=== PATIENT | female | born 1940 | race Two or more races ===

== ENCOUNTER → 2024-05-29 | Outpatient (CLI) | payer OTHER, SELFPAY | END | disposition home or self-care (01) | PROVIDERS: Referring Provider Family Medicine; Visit Provider Family Medicine | DX: D64.9 Anemia, unspecified (principal) | CPT/HCPCS: 82270 ==

== ENCOUNTER → 2024-10-08 | Outpatient (CLI) | payer OTHER, SELFPAY ==
--- NOTE | 2024-10-08 14:43 | XR_ITS ---
Examination: Breast ultrasound, unilateral, left complete Date and time of exam: October 08, 2024 1457 hours INDICATIONS: Mammogram March 17, 2024 17 mm focal asymmetry outer right breast CC view, focal asymmetry upper left breast MLO view, bilateral breast sonography April 16, 2024 left breast 2:00 nodule 6 mm Technique: Real-time guerrero scale ultrasonographic imaging performed left breast including all 4 quadrants as well as nipple retroareolar and axillary region. Findings: 3:00 oval mass circumscribed 5 x 5 mm IMPRESSION: BI-RADS Category 2: Benign findings
--- NOTE | 2024-10-08 15:09 | XR_ITS ---
Examination: Diagnostic digital mammography, bilateral Computer aided detection 3-D breast Tomosynthesis, bilateral Date and time of exam: October 08, 2024 1521 hours Compared to mammograms dating to July 30, 2017 INDICATIONS: Mammogram February 21, 2024 8 mm oval mass upper outer right breast 12 mm oval mass upper outer left breast Technique: Nonmagnified MLO, CC views of the breasts to been obtained, reconstructed from 3-D Tomosynthesis images. R2 computer aided detection program utilized for evaluation of suspicious masses and/or abnormal calcifications. 3-D Tomosynthesis images obtained. Findings: Scattered areas of fibroglandular density Oval mass is again appreciated, circumscribed, 19 mm upper outer right breast Focal asymmetry outer left breast is stable Impression: BI-RADS Category 0: Incomplete: Need additional imaging evaluation Recommend follow-up right breast sonography to further characterize 19 mm oval mass upper outer right breast on the current mammogram Assessment continued left mammogram follow-up is needed to document stability of focal asymmetry outer left breast.
== END | disposition home or self-care (01) ==
PROVIDERS: PCP Family Medicine; Referring Provider Family Medicine; Visit Provider Family Medicine
DX: N63.11 Unspecified lump in the right breast, upper outer quadrant (principal); N64.89 Other specified disorders of breast; N63.25 Unspecified lump in the left breast, overlapping quadrants
CPT/HCPCS: 76641; 77062; 77066; G0279

== ENCOUNTER → 2024-11-10 | Outpatient (CLI) | payer OTHER, SELFPAY ==
--- NOTE | 2024-11-10 08:51 | XR_ITS ---
Examination: Diagnostic digital mammography, unilateral, left Computer aided detection 3-D breast Tomosynthesis, unilateral Date and time of exam: November 10, 2024 0931 hours INDICATIONS: Mammogram October 08, 2024 19 mm oval mass circumscribed upper outer right breast, focal asymmetry outer left breast Technique: Nonmagnified MLO, CC views of the left breast have been obtained, reconstructed from 3-D Tomosynthesis images. R2 computer aided detection program utilized for evaluation of suspicious masses and/or abnormal calcifications. 3-D Tomosynthesis images obtained. Findings: Scattered areas of fibroglandular density 3:00 5 mm circumscribed nodule on left breast sonogram October 08, 2024 No current suspicious mass Impression: BI-RADS category 2: Benign findings Return to yearly follow-up mammography
--- NOTE | 2024-11-10 08:51 | XR_ITS ---
Examination: Breast ultrasound, unilateral, right complete Exam date and time: November 10, 2024 at 9:41 AM INDICATIONS: Mammogram October 08, 2024 19 mm oval mass upper outer right breast Technique: Real-time guerrero scale ultrasonographic imaging performed right breast including all 4 quadrants as well as nipple retroareolar and axillary region. Findings: No cystic or solid mass IMPRESSION: BI-RADS Category 1: Negative study
== END | disposition home or self-care (01) ==
LOC: CDIM 08:38
PROVIDERS: Referring Provider Family Medicine; Visit Provider Family Medicine
DX: R92.321 Mammographic fibroglandular density, right breast (principal)
CPT/HCPCS: 76641; 77061; 77065; G0279

== ENCOUNTER → 2024-12-22 | Outpatient (CLI) | payer OTHER, SELFPAY ==
[2024-12-22 12:24] LABS: Basophils % (Auto) 1 % (0-2.5); Eosinophils # (Auto) 0.2 Thou/mm3 (0.0-0.5); Eosinophils % (Auto) 5 % (0-10); Immature Granulocytes % (Auto) 0 % (0-0); Immature Granulocytes Auto 0.01 Thou/mm3 (0.00-0.00); Lymphocytes # (Auto) 0.8 Thou/mm3 (1.0-4.8); Lymphocytes % (Auto) 20 % (10-50); Mean Corpuscular HGB Conc 32.4 g/dl (31.0-37.0); Mean Corpuscular Hemoglobin 32.3 pg (25.0-35.0); Mean Corpuscular Volume 100 fL (80-100); Monocytes # (Auto) 0.3 Thou/mm3 (0.0-0.8); Monocytes % (Auto) 8 % (0-12); Neutrophils # (Auto) 2.7 Thou/mm3 (1.8-7.7); Neutrophils % (Auto) 67 % (37-80); Nucleated Red Blood Cell % 0 /100 WBC (0); Platelet Count 168 Thou/mm3 (140-440); RDW Standard Deviation 51.8 fL (36.4-46.3); Red Blood Count 3.71 Miln/mm3 (4.00-5.20)
[2024-12-22 12:41] LABS: Ferritin 328 ng/mL (7.3-270.7); Iron 83 mcg/dL (50-170); Percent Iron Saturation 30 % (20-55); Total Iron Binding Capacity 269 mcg/dL (250-425); Unsaturated Iron Binding 186 (225-295)
== END | disposition home or self-care (01) ==
LOC: COPL 11:17
PROVIDERS: PCP Family Medicine; Referring Provider Family Medicine; Visit Provider Family Medicine
DX: D64.9 Anemia, unspecified (principal)
CPT/HCPCS: 36415; 82728; 83540; 83550; 85025

== ENCOUNTER → 2025-02-08 | Outpatient (CLI) | payer OTHER, SELFPAY ==
--- NOTE | 2025-02-08 13:09 | XR_ITS ---
Examination: Lumbar spine 7 views TECHNIQUE: AP, lateral, coned lateral lower lumbar spine, standing lateral flexion, standing lateral extension, OSMAN, TUNISIAN, 7 views Exam date and time: February 08, 2025 1329 hours INDICATIONS: Patient fell last week with injury to the lower back, lower back pain. FINDINGS: Severe osteopenia Moderately severe compression fracture L2 which may be acute Diffuse [id number] lumbar disc narrowing Decreased range of motion between flexion and extension IMPRESSION: Recommend CT scan lumbar spine without contrast follow-up to confirm acute compression fracture L2 vertebral body
== END | disposition home or self-care (01) ==
LOC: CDIM 12:59
PROVIDERS: PCP Family Medicine; Referring Provider Family Medicine; Visit Provider Family Medicine
DX: M54.50 Low back pain, unspecified (principal)
CPT/HCPCS: 72114

== ENCOUNTER → 2025-02-22 | Outpatient (CLI) | payer OTHER, SELFPAY ==
[2025-02-22 10:23] LABS: B-Type Natriuretic Peptide 298 pg/mL (0-100)
[2025-02-22 11:03] LABS: Glucose Estimated Average 114 mg/dL (80-131); Hemoglobin A1C 5.6 % Hgb (4.8-6.0)
[2025-02-22 11:26] LABS: Anion Gap 5 (7-16); BUN/Creatinine Ratio 21 Ratio (12-20); Blood Urea Nitrogen 30 mg/dL (9-23); Calcium 8.8 mg/dL (8.3-10.6); Carbon Dioxide 30.8 mMol/L (20.0-31.0); Cardiac Risk Estimate 3.7 RATIO (3.7-5.6); Chloride 107 mMol/L (98-107); Cholesterol 194 mg/dL (132-200); Creatinine (Component) 1.4 mg/dL (0.6-1.3); Free T4 (Free Thyroxine) 1.04 ng/dL (0.89-1.76); Glucose 97 mg/dL (74-106); HDL Cholesterol 53 mg/dL (40-60); LDL Cholesterol,Calculated 112 mg/dL (0-130); Osmolality,Calculated 291 (275-295); Potassium 4.8 mMol/L (3.4-5.1); Sodium 143 mMol/L (136-145); Thyroid Stimulating Hormone 1.73 uIU/mL (0.55-4.78); Triglycerides 146 mg/dL (30-150); eGFR 37 See Note
== END | disposition home or self-care (01) ==
LOC: COPL 09:17
PROVIDERS: PCP Family Medicine; Referring Provider Internal Medicine Cardiovascular Disease; Visit Provider Internal Medicine Cardiovascular Disease
DX: I10 Essential (primary) hypertension (principal)
CPT/HCPCS: 36415; 80048; 80061; 83036; 83735; 83880; 84439; 84443

== ENCOUNTER 2025-04-13 08:10 | Emergency (ER) | payer OTHER, SELFPAY ==
[2025-04-13 08:11] VITALS: BMI 28.3
[2025-04-13 08:20] VITALS: BP 164/69; PULSE 60; RESP 19; TEMP 36.6; O2SAT 97
--- NOTE | 2025-04-13 08:24 | XR_ITS ---
Examination: Duplex scan of the lower extremity, unilateral right Date and time of exam: April 13, 2025 0856 hours INDICATIONS: Right neck swelling and pain beginning 4 weeks ago Technique: Duplex scan of the extremity veins using B-mode/grayscale imaging and Doppler spectral analysis and color flow Attention is directed to internal echogenicity, compression and augmentation involving these veins, color flow assessment, spectral analysis Findings: Major deep venous structures in the extremity demonstrate normal course and caliber. There is no evidence of deep vein thrombosis. Normal color flow and spectral analysis Impression: Negative for DVT..
--- NOTE | 2025-04-13 09:12 | XR_ITS ---
Examination: Tibia-Fibula, right , 2 views Technique: Tibia-fibula AP lateral 2 views Date and time of exam: April 13, 2025 0918 hours INDICATIONS: Lower leg swelling and pain beginning 4 months ago FINDINGS: Partial visualization total knee arthroplasties with satisfactory alignment Moderate osteopenia. No fracture. No cortical bone destruction IMPRESSION: No fracture. No cortical bone destruction
[2025-04-13 09:28] LABS: Basophils # (Auto) 0.0 Thou/mm3 (0.0-0.2); Basophils % (Auto) 1 % (0-2.5); Eosinophils # (Auto) 0.2 Thou/mm3 (0.0-0.5); Eosinophils % (Auto) 5 % (0-10); Hematocrit 32.5 % (36.0-46.0); Hemoglobin 10.3 g/dL (12.0-16.0); Immature Granulocytes Auto 0.01 Thou/mm3 (0.00-0.00); Lymphocytes # (Auto) 1.1 Thou/mm3 (1.0-4.8); Lymphocytes % (Auto) 23 % (10-50); Mean Corpuscular HGB Conc 31.7 g/dl (31.0-37.0); Mean Corpuscular Hemoglobin 32.9 pg (25.0-35.0); Mean Corpuscular Volume 104 fL (80-100); Monocytes # (Auto) 0.4 Thou/mm3 (0.0-0.8); Monocytes % (Auto) 9 % (0-12); Neutrophils # (Auto) 2.9 Thou/mm3 (1.8-7.7); Neutrophils % (Auto) 63 % (37-80); Nucleated Red Blood Cell # 0.00 Thou/mm3 (0.00-0.00); Nucleated Red Blood Cell % 0 /100 WBC (0); Platelet Count 168 Thou/mm3 (140-440); RDW Standard Deviation 57.0 fL (36.4-46.3); Red Blood Count 3.13 Miln/mm3 (4.00-5.20); White Blood Count 4.7 Thou/mm3 (3.6-11.0)
[2025-04-13 09:39] LABS: INR 1.0 (0.9-1.3); Partial Thromboplastin Time 28.3 Seconds (22.0-36.0); Prothrombin Time 11.3 Seconds (9.0-12.2)
[2025-04-13 09:40] LABS: B-Type Natriuretic Peptide 372 pg/mL (0-100)
[2025-04-13 09:41] LABS: Alanine Aminotransferase 15 U/L (10-49); Albumin, Serum 3.8 gm/dL (3.4-4.8); Albumin/Globulin Ratio 1.5 (1.2-2.2); Alkaline Phosphatase 113 U/L (46-116); Anion Gap 8 (7-16); Aspartate Amino Transferase 21 U/L (0-34); BUN/Creatinine Ratio 16 Ratio (12-20); Bilirubin,Total 0.4 mg/dL (0.3-1.2); Blood Urea Nitrogen 19 mg/dL (9-23); Calcium 8.9 mg/dL (8.3-10.6); Calcium (Corrected) 9.1 mg/dL (8.5-10.1); Carbon Dioxide 29.2 mMol/L (20.0-31.0); Chloride 106 mMol/L (98-107); Creatinine (Component) 1.2 mg/dL (0.6-1.3); Estimated Creatinine Clearance 34.0 mL/min (>60); Globulin 2.5 gm/dL (2.3-3.5); Glucose 104 mg/dL (74-106); Osmolality,Calculated 287 (275-295); Potassium 4.9 mMol/L (3.4-5.1); Sodium 143 mMol/L (136-145); Total Protein 6.3 gm/dL (5.7-8.2); eGFR 44 See Note
--- NOTE | 2025-04-13 11:22 | PD.EDLOWEX ---
Lower Extremity Injury RME/HPI General Chief Complaint: Extremity Injury, Lower Stated Complaint: SWELLING ON R) LEG Time Seen by Provider: 04/13/25 08:24 Arrival date/time: 04/13/25 08:10 84-year-old female with prior history of hypertension, right knee replacement, depression, vein ablation presents to the emergency department for complaints of right lower extremity swelling ongoing for approximately 1 month patient does report tenderness to the extremity. Patient reports no fever nausea vomiting Limitations: no limitations Related Data Home Medications ?Medication ?Instructions ?Recorded ?Confirmed atenolol 50 mg tablet (Tenormin) 50 mg PO QDAY ##0 02/17/10 08/22/22 sertraline 50 mg tablet (Zoloft) 100 mg PO HS ##0 02/17/10 08/22/22 fesoterodine 8 mg tablet,extended 8 mg PO QDAY 02/05/22 08/22/22 release 24 hr (Toviaz) esomeprazole magnesium 40 mg 40 mg PO BID 05/23/22 08/22/22 capsule,delayed release celecoxib 200 mg capsule 200 mg PO DAILY 08/21/22 08/22/22 famotidine 40 mg tablet 40 mg PO DAILY 08/21/22 08/22/22 Previous Rx's ?Medication ?Instructions ?Recorded acetaminophen 500 mg tablet 1,000 mg (2 x 500 mg) PO Q6HR #60 08/24/22 tabs aspirin 81 mg tablet,delayed 81 mg PO BID #60 tabs 08/24/22 release (Enteric Coated Aspirin) Allergies Allergy/AdvReac Type Severity Reaction Status Date / Time ibuprofen Allergy Unknown Palpitation Verified 04/13/25 14:28 s Review of Systems Review of Systems Systems Reviewed: All systems reviewed, normal except as documented Constitutional Constitutional: Reports system reviewed and no additional complaints, except as documented, Denies fever(s) and Denies headache(s) Eyes Eyes: Reports system reviewed and no additional complaints, except as documented and Denies blurry vision ENT Ears, Nose, Mouth, and Throat: Reports system reviewed and no additional complaints, except as documented, Denies headache(s), Denies nasal congestion and Denies nasal discharge Cardiovascular Cardiovascular: Reports system reviewed and no additional complaints, except as documented, Denies chest pain and Denies dyspnea Respiratory Respiratory: Reports system reviewed and no additional complaints, except as documented, Denies chest congestion, Denies cough and Denies dyspnea Gastrointestinal Gastrointestinal: Reports system reviewed and no additional complaints, except as documented and Denies abdominal pain Musculoskeletal Musculoskeletal: Reports system reviewed and no additional complaints, except as documented, Denies deformity and Reports other (Right leg pain) Integumentary/Breasts Skin/Breast: Reports system reviewed and no additional complaints, except as documented and Denies rash Neurologic Neurologic: Reports system reviewed and no additional complaints, except as documented, Reports as per HPI and Denies headache(s) Past Medical History Past Medical History NEUROLOGIC: Negative Neurological Disorders or Seizures CARDIAC: Positive Cardiac Disorders, Edema (SWOLLEN FEET AND ANKLE), Hypertension (TAKES MED) and Varicose Veins ([facility] LEG SURG); Negative Congestive Heart Failure or Cellulitis RESPIRATORY: Negative Chronic Obstructive Pulmonary Disease (COPD), Asthma, Bronchitis, Pneumonia, Tuberculosis or Sleep Apnea GASTROINTESTINAL: Positive Gastrointestinal Disorders, Gastroesophageal Reflux Disease and Obesity; Negative Hepatitis GENITOURINARY: Negative Genitourinary Disorders, Renal Disease or Kidney Stones REPRODUCTIVE: Positive Previous Pregnancies (X4) MUSCULOSKELETAL: Positive Musculoskeletal Disorders and Arthritis (KNEES (RIGHT KNEE REPLACEMENT)) ENT: Positive Cataracts ([facility]I) ENDOCRINE: Negative Endocrine Disorders, Diabetes Mellitus Type 1 or Diabetes Mellitus Type 2 HEMATOLOGIC: Positive Blood Disorders and Anemia (HX); Negative Clotting Problems PSYCHO/SOCIAL: Positive Depression and Anxiety OTHER HISTORY: Positive Shingles (2019), Falls (GAIT UNSTEADY), Chicken Pox and Measles; Negative Hospitalization, Autoimmune Disease, Blood Transfusions, Blood Transfusion Reaction, Anesthesia Reactions, Chemotherapy, Radiation Therapy, MRSA, Mumps or Cancer Family History FAMILY HISTORY: Positive Family Cardiac Disorders (SISTER (HTN)), Family Gastrointestinal Problems (BROTHER (LIVER)) and Family Cancer (FATHER); Negative Family Psychiatric Problems, Family Respiratory Disorders, Family Surgery or Family Anesthesia Reaction Surgical History SURGICAL: Positive Cardiac Surgery, Vascular Surgery ([facility] VARICOSE VEIN SURG), Abdominal Surgery, Joint Replacement (RIGHT KNEE REPLACEMENT), Hysterectomy (TVH) and Tubal Ligation; Negative Pacemaker, Endocrine Surgery or Neurologic Surgery Social History SMOKING STATUS: Never smoker ED Exam General Limitations: Present no limitations General appearance: Present alert and in no apparent distress Head Head exam: Present atraumatic, normocephalic and normal inspection Eye Eye exam: Present normal appearance, PERRL and EOMI; Absent conjunctival injection ENT ENT exam: Present normal exam, normal oropharynx and mucous membranes moist Neck Neck exam: Present normal inspection, full ROM and trachea midline Chest Chest inspection: Present normal inspection and symmetric chest wall rise Respiratory Respiratory exam: Present normal lung sounds bilaterally Cardiovascular Cardiovascular exam: Present regular rate, normal rhythm and normal heart sounds Abdominal Exam Abdominal exam: Present soft and normal bowel sounds Extremities Exam Extremities exam: Present full ROM, tenderness (Right leg pain and swelling) and normal capillary refill; Absent pedal edema, joint swelling or calf tenderness Back Exam Back exam: Present normal inspection and full ROM Neurological Exam Neurological exam: Present alert, oriented X3 and CN II-XII intact Psychiatric Psychiatric exam: Present normal affect and normal mood Skin Skin exam: Present warm, dry, intact and normal color Course Quality Measures none Orders Category Date Time Status US venous doppler LE RT Stat Exams 04/13/25 08:24 Completed XR tibia fibula RT 2V Stat Exams 04/13/25 09:12 Completed BNP [B-Type Natriuretic Peptide] Stat Lab 04/13/25 09:12 Completed CBC Stat Lab 04/13/25 09:12 Completed Comprehensive Metabolic Panel Stat Lab 04/13/25 09:12 Completed Partial Thromboplastin Time Stat Lab 04/13/25 09:12 Completed Prothrombin Time with INR Stat Lab 04/13/25 09:12 Completed Vital Signs Vital signs: Vital Signs Temperature 97.9 F 04/13/25 08:20 Pulse Rate 60 04/13/25 08:20 Respiratory Rate 19 04/13/25 08:20 Blood Pressure 164/69 H 04/13/25 08:20 Pulse Oximetry (%) 97 04/13/25 08:20 Oxygen Delivery Method Room Air 04/13/25 08:20 O2 saturation 97% on room air within normal limits Extremity Injury, Lower MDM Narrative MDM Narrative:: 84-year-old female with prior history of hypertension, right knee replacement, depression, vein ablation presents to the emergency department for complaints of right lower extremity swelling ongoing for approximately 1 month patient does report tenderness to the extremity. Patient reports no fever nausea vomiting On exam patient does have swelling to the right lower extremity there is no redness or warmth no evidence of infection Lab work obtained no acute emergent findings noted Ultrasound and x-ray obtained no acute fracture noted no acute bony abnormality no DVT noted Patient discharged home in no distress to follow-up with primary care doctor in the next 24 to 48 hours and for any worsening symptoms to return to the ER immediately Patient data External records reviewed:: [facility] previous records Clinical information provided by:: patient Social determinants that could affect healthcare access:: none Patient has the following chronic illnesses:: See history How is presenting disease/condition affected by chronic disease/condition?: uneffected by Evaluation data The following diagnostics were reviewed and interpreted by me:: lab results and radiology exam(s) Lab and/or radiology exams considered but not ordered:: Labs radiology obtained Interpretation Summary: Reviewed by me Medications / Prescriptions Medications or Prescriptions considered but not ordered:: Given Medication administrations:: Given Consultations Consultation(s) initiated? (list below): No Diagnosis Extremity Injury, Lower Differential Diagnosis: acute internal derangement of knee and other (Knee sprain, knee fracture, DVT, leg pain) Most likely diagnosis given after review of the tests above:: Edema right lower extremity Admission Indicated Admission indicated?: not indicated Admission Request Was there a request for admission?: No Disposition Plan Disposition Plan: Discharge Discharge Attestation Discharge Attestation: The patient and all family members were given an opportunity to ask questions and understood the discharge instructions. Discharge instructions specifically effects, indications for sooner follow up or return to the emergency department, and the expected course of current diagnosis. Patient condition: Stable Discharge Plan Plan Patient Disposition: HOME (Self Care) Discharge Disposition comment: Stable Prescriptions/Referrals Prescriptions/Med Rec: No Action sertraline [Zoloft] 50 MG tablet 100 mg PO HS Qty: 0 atenolol [Tenormin] 50 MG tablet 50 mg PO QDAY Qty: 0 fesoterodine [Toviaz] 8 mg tablet extended release 24 hr 8 mg PO QDAY Patient Comments: take 1 tablet by mouth once daily esomeprazole magnesium 40 mg capsule,delayed release(DR/EC) 40 mg PO BID celecoxib 200 mg capsule 200 mg PO DAILY Patient Comments: take 1 capsule by mouth once daily famotidine 40 mg tablet 40 mg PO DAILY Patient Comments: take 1 tablet by mouth at bedtime acetaminophen 500 mg Tablet 1,000 mg PO Q6HR Qty: 60 0RF aspirin [Enteric Coated Aspirin] 81 mg tablet,delayed release (DR/EC) 81 mg PO BID Qty: 60 0RF Referrals: Aida Hanna MD [Primary Care Provider] - In 1 week Problem List Clinical Impression: Edema of right lower extremity Patient/Caregiver Discharge Instructions Additional Instructions: Please follow up with your primary care doctor in the next 24-48hrs for any worsening symptoms return here immediately Please keep your leg elevated as much as possible Print Language: Thai Stand Alone Forms: Mela Award Info., Patient Portal Info Letter PA/GRAIN SCOOPER Supervising Physician PA/GRAIN SCOOPER Supervising Physician: Dr. webber
== END 2025-04-13 11:31 | disposition home or self-care (01) ==
PROVIDERS: Nurse Practitioner Primary Care; Emergency Provider Family Medicine; PCP Family Medicine
DX: R60.0 Localized edema (principal); M79.661 Pain in right lower leg
CPT/HCPCS: 36415; 73590; 80053; 83880; 85025; 85610; 85730; 93971; 99284

== ENCOUNTER 2025-04-15 07:05 | Day surgery (SDC) | payer OTHER, SELFPAY ==
[2025-04-13 14:28] VITALS: BMI 28.3
--- NOTE | 2025-04-14 07:00 | EKG_ITS ---
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
[2025-04-14 13:47] LABS: Basophils # (Auto) 0.0 Thou/mm3 (0.0-0.2); Basophils % (Auto) 1 % (0-2.5); Eosinophils # (Auto) 0.2 Thou/mm3 (0.0-0.5); Eosinophils % (Auto) 4 % (0-10); Hematocrit 34.1 % (36.0-46.0); Hemoglobin 10.8 g/dL (12.0-16.0); Immature Granulocytes Auto 0.01 Thou/mm3 (0.00-0.00); Lymphocytes # (Auto) 1.1 Thou/mm3 (1.0-4.8); Lymphocytes % (Auto) 20 % (10-50); Mean Corpuscular HGB Conc 31.7 g/dl (31.0-37.0); Mean Corpuscular Hemoglobin 32.9 pg (25.0-35.0); Mean Corpuscular Volume 104 fL (80-100); Monocytes # (Auto) 0.4 Thou/mm3 (0.0-0.8); Monocytes % (Auto) 7 % (0-12); Neutrophils # (Auto) 3.6 Thou/mm3 (1.8-7.7); Neutrophils % (Auto) 69 % (37-80); Nucleated Red Blood Cell # 0.00 Thou/mm3 (0.00-0.00); Nucleated Red Blood Cell % 0 /100 WBC (0); Platelet Count 159 Thou/mm3 (140-440); RDW Standard Deviation 58.2 fL (36.4-46.3); Red Blood Count 3.28 Miln/mm3 (4.00-5.20); White Blood Count 5.3 Thou/mm3 (3.6-11.0)
[2025-04-14 13:52] LABS: Anion Gap 5 (7-16); BUN/Creatinine Ratio 15 Ratio (12-20); Blood Urea Nitrogen 19 mg/dL (9-23); Calcium 9.0 mg/dL (8.3-10.6); Carbon Dioxide 29.8 mMol/L (20.0-31.0); Chloride 107 mMol/L (98-107); Creatinine (Component) 1.3 mg/dL (0.6-1.3); Estimated Creatinine Clearance 31.3 mL/min (>60); Glucose 98 mg/dL (74-106); Osmolality,Calculated 285 (275-295); Potassium 5.6 mMol/L (3.4-5.1); Sodium 142 mMol/L (136-145); eGFR 40 See Note
[2025-04-14 13:53] LABS: INR 1.0 (0.9-1.3); Partial Thromboplastin Time 28.9 Seconds (22.0-36.0); Prothrombin Time 11.1 Seconds (9.0-12.2)
[2025-04-15] VITALS (11 sets, daily range): BP systolic 150–201; BP diastolic 66–128; PULSE 55–68; RESP 12–20; TEMP 36.2; O2SAT 96–98; BMI 29.3
--- NOTE | 2025-04-15 08:00 | EKG_ITS ---
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
[2025-04-15] MEDS: DEXTROSE 50%-WATER INJ 50 ML SYRINGE 25 ML IVP (08:08)
[2025-04-15] MEDS: INSULIN HUM REGULAR 1 UNIT/0.01 ML (PER UNIT) 5 UNIT IV (08:09)
[2025-04-15] MEDS: SOD POLYSTYRENE SULFON SUSP 15 GM/60 ML BTL 60 GM PO (08:20)
--- NOTE | 2025-04-15 09:59 | PC.NURSE ---
Patient refused to take 15mg of Sodium polystyrene, Dr. Mays made aware.
--- NOTE | 2025-04-15 11:32 | PD.CARDCATH ---
Cardiac Cath Procedure Procedure Name Date of procedure: 04/15/25 HOSPITAL TRAY SERVICE WORKER: Jose Carlos Mays MD PROCEDURE PERFORMED: 1. Left heart and right heart cardiac catheterization including right, left coronary angiograms and left ventriculogram - CPT 21967 2. Ultrasound-guided access of the right radial artery and right femoral vein - CPT 59017 3. Conscious sedation for 30 minutes - CPT 40523 Procedure Narrative HISTORY AND INDICATIONS: 84 y/o female with PMHx HTN, GERD, iron-def anemia, osteoporosis, OA, varicose vein s/p phlebectomy, and anxiety, initially came in referred to the office for evaluation of chest pain. Patient had ischemic cardiac work up and NST showed decreased uptake in the inferior and inferior lateral segments with stress compared to the rest and has stress-induced ischemia. EF 58%, TID 0.83. Patient was brought in for an elective cardiac catheterization. Patient did complain of chest pressure when he was in the palpitations and even after he converted to normal sinus rhythm and patient has new onset heart failure hence patient is a candidate for left and right coronary angiograms hence schedule for cardiac catheterization today. Discussed with patient risks, benefits and alternatives of performing left with coronary angiogram including the risks of bleeding, heart rate, stroke and with the procedure. Patient understands the risks and is willing to undergo the procedure. Consent provided for the same. H&P updated and consent was signed prior to the procedure DESCRIPTION OF PROCEDURE: The patient was brought to the cardiac catheterization lab and all asceptic precautions were followed. Patient was given 1 Mg of Versed and 50 mcg of fentanyl for moderate conscious sedation. 2 mL of lidocaine was given in the right wrist. The right radial artery was accessed via the ultrasound guidance as well as micropuncture technique. A 6 Nauruan glide sheath was introduced. Patient already had right antecubital vein access placed. Right antecubital vein access was cleaned appropriately and all aseptic precautions was followed and exchanged into a micropuncture catheter with the help of a micropuncture wire and then introduced and a 7 Nauruan sheath into the antecubital vein access with the help of a J-wire. A 7 Nauruan crow catheter was used to direct catheter into the right atrium with inflated balloon. A 10 ml of lidocaine was then injected in the right femoral area and right femoral vein vein was accessed with ultrasound guidance and micropuncture technique. A 7 panamanian femoral sheath was used. A 7 [place]uan [place] catheter was used with a [place] wire to direct into the right atrium with inflated balloon. Serial measurements of right atrium, right ventricle, pulmonary artery and pulmonary capillary wedge were taken severely with normal respiration as well as at end expiration as noted below. We then used a 6 Nauruan TIG 4 catheter to perform the left and right coronary angiogram as well as a left ventriculogram which showed the following findings. LHC findings: 1. Left ventricular ejection fraction was 55-60% without any regional wall motion abnormalities. LVEDP was 30 mmHg. There was no significant transvalvular aortic gradient. 2. Right dominant circulation left main artery is a large-caliber vessel without any significant stenosis. 3. LAD is a large sized artery with 10-20% stenosis of mid to distal segment. Medium size diagonal and does not show any significant disease. mild 20% disease of ostial diagonal 1 4. LCx is a large sized artery with minimal luminal irregularities. Medium OM1 and small OM2 without any significant disease. 5. RCA is a large artery with nedium RPDA and RPL without any significant disease. RHC findings: Mean right atrial pressure was 10 mmHg. Right ventricuar pressure was 13/12 mmHg. Pulmonary artery pressure was 45/20 mmHg with a mean of 32 mmHg. Mean pulmonary capillary wedge pressure was 19 mmHg. TPG was 11 mmHg Pulmonary artery PA saturation was 71.4%.? Arterial saturation was 91.2% on room air. Cardiac output was 5.4 L/min and cardiac index was normal at 2.98 L/min/m? A radial band was used to achieve the hemostasis of the right radial artery access and manual hemostasis for the right antecubital vein. Patient will be monitored in the cardiac food mobile driver for the next 2 to 3 hours and will be sent to the telemetry floor. Patient recommended to follow-up with me in the office within 7 days after discharge. Complications: None Specimens: None Blood loss: Estimated 5 ml Summary/findings: 1. Abnormal Stress test: LHC showed mild CAD with 10-20% stenosis of mid to distal LAD, ostial D1, LCx with minimal luminal irregularities, rest of the coronaries without any angiographically significant obstruction. 2. LVEF was 55-60%. 3. LVEDP was 30 mm hg. No significant transvalvular aortic gradient. 4. Mildly elevated right heart pressures with mean RA of 10 mm hg, mean PA of 32 mmhg and mean PCWP at 19 mm hg. Recommendations: 1. Recommend aggressive medical management and aggressive risk factor modification. Increase oral lasix 40 mg daily. 2. Patient recommended not to lift more than 5 lbs for the next 7-10 days and follow up with me in my office in 7 days. Jose Carlos Mays MD Interventional Cardiology.
== END 2025-04-15 13:00 | disposition home or self-care (01) ==
PROVIDERS: PCP Family Medicine; Referring Provider Internal Medicine Cardiovascular Disease; Visit Provider Internal Medicine Cardiovascular Disease
PROC: (CPT 93460; principal; 2025-04-15 08:30)
PROC: (CPT 93460; 2025-04-15 08:30)
DX: I25.118 Atherosclerotic heart disease of native coronary artery with other forms of angina pectoris (principal); M81.0 Age-related osteoporosis without current pathological fracture; Z01.810 Encounter for preprocedural cardiovascular examination; I10 Essential (primary) hypertension; K21.9 Gastro-esophageal reflux disease without esophagitis; D50.9 Iron deficiency anemia, unspecified; M19.90 Unspecified osteoarthritis, unspecified site
CPT/HCPCS: 93460; 36415; 80048; 85025; 85610; 85730; 93005; 99152; 99153; A4649; C1769; C1894; J0153; J0171; J0282; J0360; J0461; J1643; J1815; J1938; J2250; J2310; J2371; J3010; J3490; Q9967; A9270; J2305

== ENCOUNTER 2025-05-14 20:12 | Emergency (ER) | payer OTHER, SELFPAY ==
[2025-05-14 21:27] VITALS: BP 153/71; PULSE 55; RESP 18; TEMP 36.6; O2SAT 98
--- NOTE | 2025-05-14 21:52 | PD.EDEPIST ---
ED Epistaxis RME/HPI General Chief complaint: Epistaxis/Nasal Foreign Body Stated complaint: NOSE BLEED Time Seen by Provider: 05/14/25 21:39 Arrival date/time: 05/14/25 20:12 85F with history of anxiety and CAD (on baby aspirin) presents to ED with 30 min of L spontaneous nosebleed. 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 Limitations: no limitations Related Data Home Medications ?Medication ?Instructions ?Recorded ?Confirmed sertraline 50 mg tablet (Zoloft) 100 mg PO HS ##0 02/17/10 04/15/25 esomeprazole magnesium 40 mg 40 mg PO BID 05/23/22 04/15/25 capsule,delayed release celecoxib 200 mg capsule 200 mg PO DAILY 08/21/22 04/15/25 famotidine 40 mg tablet 40 mg PO DAILY 08/21/22 04/15/25 alendronate 70 mg tablet 70 mg PO QWEEK 04/15/25 04/15/25 atenolol 25 mg tablet 25 mg PO Q24H 04/15/25 04/15/25 carvedilol 6.25 mg tablet 6.25 mg PO Q12H 04/15/25 04/15/25 furosemide 20 mg tablet 20 mg PO DAILY 04/15/25 04/15/25 solifenacin 10 mg tablet 10 mg PO QDAY 04/15/25 04/15/25 Previous Rx's ?Medication ?Instructions ?Recorded acetaminophen 500 mg tablet 1,000 mg (2 x 500 mg) PO Q6HR #60 08/24/22 tabs aspirin 81 mg tablet,delayed 81 mg PO BID #60 tabs 08/24/22 release (Enteric Coated Aspirin) Allergies Allergy/AdvReac Type Severity Reaction Status Date / Time ibuprofen Allergy Unknown Palpitation Verified 05/14/25 20:51 s Review of Systems Review of Systems Systems Reviewed: All systems reviewed, normal except as documented Constitutional Constitutional: Reports system reviewed and no additional complaints, except as documented, Denies fever(s) and Denies headache(s) ENT Ears, Nose, Mouth, and Throat: Reports as per HPI, Denies disequilibrium, Reports epistaxis and Denies headache(s) Cardiovascular Cardiovascular: Reports system reviewed and no additional complaints, except as documented, Denies chest pain and Denies dyspnea Respiratory Respiratory: Reports system reviewed and no additional complaints, except as documented, Denies cough and Denies dyspnea Gastrointestinal Gastrointestinal: Reports system reviewed and no additional complaints, except as documented, Denies abdominal pain, Denies nausea and Denies vomiting Neurologic Neurologic: Reports system reviewed and no additional complaints, except as documented, Denies confusion, Denies disequilibrium and Denies headache(s) Psychiatric Psychiatric: Denies confusion Past Medical History Past Medical History NEUROLOGIC: Negative Neurological Disorders or Seizures CARDIAC: Positive Cardiac Disorders, Edema (SWOLLEN FEET AND ANKLE), Hypertension (TAKES MED) and Varicose Veins ([facility] LEG SURG); Negative Congestive Heart Failure or Cellulitis RESPIRATORY: Negative Chronic Obstructive Pulmonary Disease (COPD), Asthma, Bronchitis, Pneumonia, Tuberculosis or Sleep Apnea GASTROINTESTINAL: Positive Gastrointestinal Disorders, Gastroesophageal Reflux Disease and Obesity; Negative Hepatitis GENITOURINARY: Negative Genitourinary Disorders, Renal Disease or Kidney Stones REPRODUCTIVE: Positive Previous Pregnancies (X4) MUSCULOSKELETAL: Positive Musculoskeletal Disorders and Arthritis (KNEES (RIGHT KNEE REPLACEMENT)) ENT: Positive Cataracts ([facility]) ENDOCRINE: Negative Endocrine Disorders, Diabetes Mellitus Type 1 or Diabetes Mellitus Type 2 HEMATOLOGIC: Positive Blood Disorders and Anemia (HX); Negative Clotting Problems PSYCHO/SOCIAL: Positive Depression and Anxiety OTHER HISTORY: Positive Shingles (2019), Falls (GAIT UNSTEADY), Chicken Pox and Measles; Negative Hospitalization, Autoimmune Disease, Blood Transfusions, Blood Transfusion Reaction, Anesthesia Reactions, Chemotherapy, Radiation Therapy, MRSA, Mumps or Cancer Family History FAMILY HISTORY: Positive Family Cardiac Disorders (SISTER (HTN)), Family Gastrointestinal Problems (BROTHER (LIVER)) and Family Cancer (FATHER); Negative Family Psychiatric Problems, Family Respiratory Disorders, Family Surgery or Family Anesthesia Reaction Surgical History SURGICAL: Positive Cardiac Surgery, Vascular Surgery ([facility] VARICOSE VEIN SURG), Abdominal Surgery, Joint Replacement (RIGHT KNEE REPLACEMENT), Hysterectomy (TVH) and Tubal Ligation; Negative Pacemaker, Endocrine Surgery or Neurologic Surgery Social History SMOKING STATUS: Never smoker ED Exam General Limitations: Present no limitations General appearance: Present alert and in no apparent distress Head Head exam: Present atraumatic Eye Eye exam: Present normal appearance, PERRL and EOMI ENT ENT exam: Present normal exam, normal oropharynx and mucous membranes moist Neck Neck exam: Present normal inspection, full ROM and trachea midline Chest Chest inspection: Present normal inspection and symmetric chest wall rise Respiratory Respiratory exam: Present normal lung sounds bilaterally Cardiovascular Cardiovascular exam: Present regular rate, normal rhythm and normal heart sounds Abdominal Exam Abdominal exam: Present soft and normal bowel sounds Extremities Exam Extremities exam: Present normal inspection and full ROM Back Exam Back exam: Present normal inspection and full ROM Neurological Exam Neurological exam: Present alert, oriented X3 and CN II-XII intact Psychiatric Psychiatric exam: Present normal affect and normal mood Skin Skin exam: Present warm, dry, intact and normal color Course Quality Measures none Vital Signs Vital signs: Vital Signs Temperature 97.8 F 05/14/25 21:27 Pulse Rate 55 L 05/14/25 21:27 Respiratory Rate 18 05/14/25 21:27 Blood Pressure 153/71 H 05/14/25 21:27 Pulse Oximetry (%) 98 05/14/25 21:27 Oxygen Delivery Method Room Air 05/14/25 21:27 O2 at 98% on RA and WNLs Epistaxis MDM Narrative MDM Narrative:: 85F with history of anxiety and CAD (on baby aspirin) presents to ED with 30 min of L spontaneous nosebleed. 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 Physical exam reveals no active bleeding in either nare. Patient is afebrile, calm, alert, and states she feels better. 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 Patient data External records reviewed:: [facility] previous records Clinical information provided by:: patient Social determinants that could affect healthcare access:: mental health Patient has the following chronic illnesses:: anxiety and CAD How is presenting disease/condition affected by chronic disease/condition?: exacerbated by Evaluation data The following diagnostics were reviewed and interpreted by me:: other (specify) (none) Lab and/or radiology exams considered but not ordered:: not ordered Interpretation Summary: n/a Medications / Prescriptions Medications or Prescriptions considered but not ordered:: not ordered Medication administrations:: n/a Consultations Consultation(s) initiated? (list below): No Diagnosis Epistaxis Differential Diagnosis: nasal bone fracture, anterior epistaxis and posterior epistaxis Most likely diagnosis given after review of the tests above:: epistaxis Admission Indicated Admission indicated?: not indicated Admission Request Was there a request for admission?: No Disposition Plan Disposition Plan: Discharge Discharge Attestation Discharge Attestation: The patient and all family members were given an opportunity to ask questions and understood the discharge instructions. Discharge instructions specifically effects, indications for sooner follow up or return to the emergency department, and the expected course of current diagnosis. Patient condition: Stable Discharge Plan Plan Patient Disposition: HOME (Self Care) Discharge Disposition comment: Stable Prescriptions/Referrals Prescriptions/Med Rec: No Action sertraline [Zoloft] 50 MG tablet 100 mg PO HS Qty: 0 esomeprazole magnesium 40 mg capsule,delayed release(DR/EC) 40 mg PO BID celecoxib 200 mg capsule 200 mg PO DAILY Patient Comments: take 1 capsule by mouth once daily famotidine 40 mg tablet 40 mg PO DAILY Patient Comments: take 1 tablet by mouth at bedtime acetaminophen 500 mg Tablet 1,000 mg PO Q6HR Qty: 60 0RF aspirin [Enteric Coated Aspirin] 81 mg tablet,delayed release (DR/EC) 81 mg PO BID Qty: 60 0RF alendronate 70 mg tablet 70 mg PO QWEEK solifenacin 10 mg tablet 10 mg PO QDAY furosemide 20 mg tablet 20 mg PO DAILY Patient Comments: take 1 tablet by mouth once daily carvedilol 6.25 mg tablet 6.25 mg PO Q12H Patient Comments: take 1 tablet by mouth twice a day with food atenolol 25 mg tablet 25 mg PO Q24H Patient Comments: take 1 tablet by mouth once daily Problem List Clinical Impression: Epistaxis Patient/Caregiver Discharge Instructions Education Materials: ED Epistaxis (Adult) Additional Instructions: Please follow-up with PCP within 24-48 hours and return immediately if symptoms worsen. Print Language: Cameroonian Stand Alone Forms: Patient Portal Info Letter PA/JEWEL STRIPPER Supervising Physician MARLEE/JAMARI Supervising Physician: Dr. Sánchez
== END 2025-05-14 22:10 | disposition home or self-care (01) ==
LOC: SERX 21:45
PROVIDERS: Emergency Provider Emergency Medicine; PCP Family Medicine
DX: R04.0 Epistaxis (principal)
CPT/HCPCS: 99282